=== PATIENT | male | born 1950 | race Caucasian/White ===

== ENCOUNTER 2018-11-02 08:17 | Day surgery (SDC) | payer MEDICARE, OTHER ==
[~2018-11-02] VITALS: Ht 162.6 cm; Wt 51.8 kg
[~2018-11-02 08:17] MED LIST: SODIUM CHLORIDE 0.9% 1,000 ML IV ONE
[2018-11-02] MEDS ORDERED: TRAZ-220 PO (08:39)
[2018-11-02] MEDS ORDERED: TAMS-1 PO (08:39)
[2018-11-02] MEDS ORDERED: NITR0.3T SL (08:39)
[2018-11-02] MEDS ORDERED: ROSU20TA23 PO (08:39)
[2018-11-02] MEDS ORDERED: DONE5TAB5 PO (08:39)
[2018-11-02] MEDS ORDERED: MEMA10TA11 PO (08:39)
[2018-11-02] MEDS ORDERED: SLOWK8 PO (08:39)
[2018-11-02] MEDS ORDERED: ASPI-1182 PO (08:39)
[2018-11-02] MEDS ORDERED: CARV6 PO (08:39)
[2018-11-02] MEDS ORDERED: FURO40 PO (08:39)
[2018-11-02] MEDS ORDERED: LISI-661 PO (08:39)
[2018-11-02 08:53] LABS: BASOPHILS % (AUTO) 0.4 % (0.0-2.0); EOSINOPHILS % (AUTO) 0.1 % (1.0-6.0); HEMOGLOBIN 12.6 g/dL (13.5-17.5); LYMPHOCYTES # (AUTO) 50.7 K/uL (1.0-4.8); LYMPHOCYTES % (AUTO) 90.1 % (22.0-44.0); MEAN CORPUSCULAR HEMOGLOBIN 28.7 pg (26.0-34.0); MEAN CORPUSCULAR HGB CONC 31.4 G/dL (31.0-37.0); MEAN CORPUSCULAR VOLUME 91 fL (80-100); MONOCYTES % (AUTO) 1.8 % (2.0-9.0); NEUTROPHILS # (AUTO) 4.3 K/uL (1.8-7.7); NEUTROPHILS % (AUTO) 7.6 % (40.0-70.0); PLATELET COUNT (AUTO) 221 K/uL (150-450); RED BLOOD CELL COUNT(AUTO) 4.39 MIL/uL (4.50-5.90); RED CELL DISTRIBUTION WIDTH 15.3 % (11.5-14.5)
[2018-11-02 08:58] LABS: CALCIUM, TOTAL 8.8 mg/dL (8.8-10.5); CREATININE 1.24 mg/dL (0.60-1.30); POTASSIUM 4.1 mmol/L (3.5-5.1)
[2018-11-02] MEDS ORDERED: SODIUM CHLORIDE 0.9% 1,000 ML IV ONE (09:00)
[2018-11-02 09:04] LABS: ALBUMIN 3.8 g/dL (3.4-5.0); BILIRUBIN,TOTAL 0.3 mg/dL (0.1-1.0); MAGNESIUM 2.2 mg/dL (1.80-2.40); TOTAL PROTEIN, SERUM 6.8 g/dL (6.4-8.2)
[2018-11-02 09:06] LABS: PROTHROMBIN TIME 10.1 SEC (9.4-11.6)
[2018-11-02] MEDS ORDERED: PROPOFOL 1000 MG/ISO-OSM 0 ML IV ONE (10:14)
[2018-11-02] MEDS ORDERED: KETAMINE HCL 50 MG/ML 10 ML VIAL ONE (10:14)
[2018-11-02 10:40] LABS: BASOPHILS % (AUTO) 0.2 % (0.0-2.0); EOSINOPHILS % (AUTO) 0.1 % (1.0-6.0); HEMATOCRIT 36.9 % (41-53); HEMOGLOBIN 11.7 g/dL (13.5-17.5); LYMPHOCYTES # (AUTO) 48.8 K/uL (1.0-4.8); LYMPHOCYTES % (AUTO) 90.5 % (22.0-44.0); MEAN CORPUSCULAR HEMOGLOBIN 28.7 pg (26.0-34.0); MEAN CORPUSCULAR HGB CONC 31.6 G/dL (31.0-37.0); MEAN CORPUSCULAR VOLUME 91 fL (80-100); MONOCYTES # (AUTO) 0.6 K/uL (0.1-1.0); MONOCYTES % (AUTO) 1.1 % (2.0-9.0); NEUTROPHILS # (AUTO) 4.4 K/uL (1.8-7.7); NEUTROPHILS % (AUTO) 8.1 % (40.0-70.0); PLATELET COUNT (AUTO) 211 K/uL (150-450); RED BLOOD CELL COUNT(AUTO) 4.08 MIL/uL (4.50-5.90); RED CELL DISTRIBUTION WIDTH 15.5 % (11.5-14.5)
== END 2018-11-02 12:25 | disposition home or self-care (01) ==
LOC: SDS 08:17
PROVIDERS: ATTEND Internal Medicine Clinical Cardiac Electrophysiology
DX: Z45.02 Encounter for adjustment and management of automatic implantable cardiac defibrillator (principal); Z53.8 Procedure and treatment not carried out for other reasons; C91.10 Chronic lymphocytic leukemia of B-cell type not having achieved remission; Z98.890 Other specified postprocedural states
CPT/HCPCS: 36415; 80053; 83735; 85025; 85610; 85730; 93005; J7030; J2704; J3490

== ENCOUNTER 2018-11-04 10:38 | Day surgery (SDC) | payer MEDICARE, OTHER ==
[~2018-11-04] VITALS: Ht 162.6 cm; Wt 51.8 kg
[~2018-11-04 10:38] MED LIST changes: +ASPI-1182 PO; +CARV6 PO; +DONE5TAB5 PO; +FURO40 PO; +LISI-661 PO; +MEMA10TA11 PO; +NITR0.3T SL; +ROSU20TA23 PO; +SLOWK8 PO; -SODIUM CHLORIDE 0.9% 1,000 ML IV ONE; +TAMS-1 PO; +TRAZ-220 PO
[2018-11-04] MEDS ORDERED: FentaNYL CITRATE-PF 100 MCG/2 ML VIAL IVP ONE (10:39)
[2018-11-04] MEDS ORDERED: KETOROLAC TROMETHAMINE 60 MG/2 ML VIAL IM ONE (10:39)
[2018-11-04] MEDS ORDERED: MIDAZOLAM HCL 2 MG/2 ML VIAL IVP ONE (10:39)
[2018-11-04] MEDS ORDERED: PROPOFOL 1% 20 ML VIAL IVP ONE (10:39)
[2018-11-04] MEDS ORDERED: SODIUM CHLORIDE 0.9% 1,000 ML IV ONE ×2 (10:52→11:00)
[2018-11-04 11:15] LABS: BASOPHILS % (AUTO) 0.3 % (0.0-2.0); EOSINOPHILS % (AUTO) 0.2 % (1.0-6.0); HEMATOCRIT 38.1 % (41-53); HEMOGLOBIN 12.2 g/dL (13.5-17.5); LYMPHOCYTES # (AUTO) 52.9 K/uL (1.0-4.8); LYMPHOCYTES % (AUTO) 90.5 % (22.0-44.0); MEAN CORPUSCULAR HEMOGLOBIN 28.6 pg (26.0-34.0); MEAN CORPUSCULAR HGB CONC 31.9 G/dL (31.0-37.0); MEAN CORPUSCULAR VOLUME 90 fL (80-100); MONOCYTES # (AUTO) 0.7 K/uL (0.1-1.0); MONOCYTES % (AUTO) 1.2 % (2.0-9.0); NEUTROPHILS # (AUTO) 4.5 K/uL (1.8-7.7); NEUTROPHILS % (AUTO) 7.8 % (40.0-70.0); PLATELET COUNT (AUTO) 221 K/uL (150-450); RED BLOOD CELL COUNT(AUTO) 4.25 MIL/uL (4.50-5.90); RED CELL DISTRIBUTION WIDTH 15.3 % (11.5-14.5)
[2018-11-04] MEDS ORDERED: LIDOCAINE/PF 1% 30 ML VIAL ONE (13:40)
[2018-11-04] MEDS ORDERED: SODIUM BICARBONATE 50 MEQ/50 ML VIAL ONE (13:40)
[2018-11-04 13:51] VITALS: BP 125/48
[2018-11-04] MEDS ORDERED: LIDOCAINE 1% 30 ML/SOD BICARB 8.4% 4 ML SQ ONE (14:00)
[2018-11-04] MEDS ORDERED: BUPIVACAINE LIPOSOME/PF 1.3%-13.3MG/ML SUSPENSION 10 ML VIAL INJ ONE (14:00)
[2018-11-04 15:11] VITALS: BP 126/58
[2018-11-04] MEDS ORDERED: CeFAZolin 2 GM/DEXTROSE 0 ML IV ONE (17:42)
[2018-11-04] MEDS ORDERED: CeFAZolin 1 GM/DEXTROSE 50 ML IV ONE ×2 (17:44→18:00)
== END 2018-11-04 19:00 | disposition home or self-care (01) ==
LOC: SDS 10:38
PROVIDERS: ATTEND Internal Medicine Clinical Cardiac Electrophysiology
DX: Z45.02 Encounter for adjustment and management of automatic implantable cardiac defibrillator (principal); E78.00 Pure hypercholesterolemia, unspecified; I25.2 Old myocardial infarction; I10 Essential (primary) hypertension; I25.10 Atherosclerotic heart disease of native coronary artery without angina pectoris; Z98.890 Other specified postprocedural states
CPT/HCPCS: 33263; 36415; 85025; 88300; 93640; C1721; J0690; J1885; J2250; J2704; J3010; J3490 ×2; J7030; 33240